=== PATIENT | female | born 1995 | race Caucasian/White ===

== ENCOUNTER → 2017-06-24 | Outpatient (REF) | payer BC ==
[2017-06-24 11:22] LABS: INFLUENZA A AMPLIFICATION NEGATIVE (NEGATIVE); INFLUENZA B AMPLIFICATION NEGATIVE (NEGATIVE); RSV AMPLIFICATION NEGATIVE (NEGATIVE)
== END ==
LOC: M LAB REF 10:29
DX: J11.1 Influenza due to unidentified influenza virus with other respiratory manifestations (principal)
CPT/HCPCS: 87430

== ENCOUNTER → 2017-07-07 | Outpatient (REF) | payer OTHER | LOC: M SFHCLERA 14:20 | DX: J02.9 Acute pharyngitis, unspecified (principal) ==